=== PATIENT | male | born 1985 | race Caucasian/White ===

== ENCOUNTER 2016-12-13 05:37 | Emergency (ER) | payer OTHER ==
[~2016-12-13] VITALS: Ht 182.9 cm; Wt 96.5 kg
[2016-12-13 05:38] VITALS: Ht 182.9 cm; Wt 96.5 kg
[2016-12-13] MEDS ORDERED: KETOROLAC 60 MG INJ IM STA (06:36)
--- NOTE | 2016-12-13 07:04 | RADRPT ---
PROCEDURE: XR Knee. CLINICAL INDICATION: Left knee pain following injury. TECHNIQUE: 3 views of the left knee are available for review. COMPARISON: None available FINDINGS: The osseous structures demonstrate normal alignment and mineralization. No acute fracture or disloc ation is identified. There is no periostitis or osteochondral lesion seen. There is fragmentation o f the anterior tibial tubercle. There is a small suprapatellar effusion. The soft tissues are unrem arkable. IMPRESSION: 1. Small suprapatellar effusion. 2. Fragmentation of the anterior tibial tubercle suggesting old [place]-Schlatter disease. RPTAT: HH .Liliya Tay MD, MD Date Time Electronically viewed and signed by .Liliya Tay MD, on 12/13/2016 07:03 .G/
[2016-12-13] MEDS ORDERED: IBUP-1542 PO (07:08)
[2016-12-13] MEDS ORDERED: HYDR-906 PO (07:08)
--- NOTE | 2016-12-13 07:33 | ERD ---
ER Documentation Chief Complaint Date/Time DATE: 12/13/16 TIME: 07:30 Chief Complaint LT KNEE TORN MENISCUS LAST YEAR W/ FLARE UP PAIN TODAY HPI This 31-year-old male complains of left knee pain starting yesterday after playing basketball and coming down awkwardly. He has a history of unspecified meniscal injury last year treated with PRP. He was improved prior to yesterday. Points to the patella on the inferior aspect as the source of his pain. He has difficulty with extending and bending his left knee. He denies any direct trauma, primarily a twisting her awkward landing after jumping ROS All systems reviewed and are negative except as per history of present illness. Medications Home Meds Active Scripts Hydrocodone/Acetaminophen ([place] 5-325 Tablet) 1 Each Tablet, 1 TAB PO Q6H Y for PAIN, #12 TAB Prov:MARY LEW MD 12/13/16 Ibuprofen* (Motrin*) 600 Mg Tab, 600 MG PO Q6, #20 TAB Prov:MARY LEW MD 12/13/16 Allergies Allergies: Coded Allergies: No Known Drug Allergies (Verified Allergy, Unknown, 08/10/15) PMhx/Soc Medical and Surgical Hx: pt denies Medical Hx, pt denies Surgical Hx Hx Alcohol Use: No Hx Substance Use: No Hx Tobacco Use: No Smoking Status: Never smoker Physical Exam Vitals Vital Signs Date Time Temp Pulse Resp B/P Pulse Ox O2 Delivery O2 Flow Rate FiO2 12/13/16 05:38 96.5 64 18 117/68 99 Physical Exam Const: [] Alert, [id number] per Head: Atraumatic Eyes: Normal Conjunctiva ENT: Normal External Ears, Nose and Mouth. Neck: Full range of motion..~ No meningismus. Resp: Clear to auscultation bilaterally Cardio: Regular rate and rhythm, no murmurs Abd: Soft, non tender, non distended. Normal bowel sounds Skin: No petechiae or rashes Back: No midline or flank tenderness Ext: No cyanosis, or edema. Tenderness primarily the left infrapatellar area. No effusion, deformities. There is no appreciable joint line tenderness , or instability. There is no calf swelling or Homans sign. Neur: Awake and alert Psych: Normal Mood and Affect Results 24 hrs Current Medications Medications (Trade) Dose Ordered Sig/Melani Route PRN Reason Start Time Stop Time Status Last Admin Dose Admin Ketorolac Tromethamine (Toradol) 60 mg ONCE STAT IM 12/13/16 06:36 12/13/16 06:37 DC 12/13/16 06:44 Procedures/MDM X-ray left knee 3V Interpreted by me: Bones: No acute fracture identified. There is some calcification suggesting old [place]-Schlatter's disease Joints: [No dislocation] Foreign body: [None]. 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 Patient was placed in left knee immobilizer and given crutches and Toradol 60 mg IM. Patient is neurovascular intact after knee immobilizer. Patient presents with left anterior knee pain after playing sports yesterday. There is no evidence of ischemia, signs or symptoms of acute fracture, dislocation, deficits, ischemia. He may have exacerbated old Lucas-Schlatter' s disease. He will be discharged home instructions for orthopedic and primary care follow-up. He was advised he may need authorization from primary doctor for orthopedist visit is advised to return for fevers, redness, new worsening symptoms or Departure Diagnosis: Primary Impression: Lucas-Schlatter's disease Laterality: left Qualified Code: M92.52 - [place]-Schlatter's disease, left Additional Impression: Knee injury Encounter type: initial encounter Laterality: left Qualified Code: S89.92XA - Knee injury, left, initial encounter Condition: Stable Patient Instructions: Knee Sprain, [place]-Schlatter's Disease Referrals: MIRI ELENA MD [facility] Hours: Mon-Fri 9:00 AM - 5:00 PM Additional Instructions: Knee x-ray suggests old bone injury, and an children irritated by recent event. See orthopedist for further evaluation. Ice at home. Return for fevers, new worsening symptoms. May need authorization from primary doctor for orthopedist visit. MARY LEW MD Dec 13, 2016 07:33
== END 2016-12-13 07:27 | disposition home or self-care (01) ==
LOC: FTE 05:37
DX: M92.52 Juvenile osteochondrosis of tibia tubercle (principal); X50.1XXA Overexertion from prolonged static or awkward postures, initial encounter; Y92.9 Unspecified place or not applicable
CPT/HCPCS: 29505; 73562; J1885; 96372